=== PATIENT | female | born 2000 ===

== ENCOUNTER 2024-10-04 19:58 | Emergency (ER) | payer BC, SELFPAY ==
[2024-10-04 19:59] VITALS: BP 164/104
--- NOTE | 2024-10-04 20:16 | ED.GENMED ---
History of Present Illness
<MARQUITA Dickerson - Last Filed: 10/04/24 22:16>
General
Chief Complaint: Cardiac Symptoms
Source: patient
Exam Limitations: none
Time Seen by Provider: 10/04/24 20:07
History of Present Illness
History of Present Illness:
This is a 24 year old female that comes in with c/o tachycardia. States that she works at [employer]. States that when she was at work she was having episode of her heart racing. States that they did an ECG and her heart rate was 120.
States that she has a prescription for an Echo and labs. State that she was told that if her heart rate didn't go down to come to the ER. States that she has a Holter monitor on and that she is not getting any better. States that her heart rate was
140 today. States that her chest feels sore. Denies any fever, chills, SOB, abd pain, nausea, vomiting, diarrhea, headache, dizziness, urinary burning.
Past History
<MARQUITA Dickerson - Last Filed: 10/04/24 22:16>
Past History
ED Past Medical History: GERD; Negative Asthma, HTN, Hypercholesterolemia or NIDDM
ED Past Surgical History: None
Social History
Tobacco: Non-smoker
Alcohol: Occasional
Personal: Single
Living: with family
Employment: Employed
Review of Systems
<MARQUITA Dickerson - Last Filed: 10/04/24 22:16>
Review of Systems
All Other Systems: ROS reviewed and negative except as documented in HPI and ROS
Constitutional: Reports no symptoms; Denies fever or chills
EENT: Reports no symptoms
Respiratory: Reports no symptoms; Denies cough or trouble breathing
Cardiac: Reports chest pain (Feels sore) and other (fast heart rate)
ABD/GI: Reports no symptoms; Denies abdominal pain, nausea, vomiting or diarrhea
: Reports no symptoms; Denies dysuria, frequency or urgency
Musculoskeletal: Reports no symptoms
Skin: Reports no symptoms
Neurological: Reports no symptoms; Denies dizzy or headache
Psychiatric: Reports no symptoms
Phy Exam
<MARQUITA Dickerson - Last Filed: 10/04/24 22:16>
General Physical Exam
General Presentation: well appearing and no apparent distress
General age: appears stated age
General Skin: warm and dry
General Habitus: normal
General Mental: alert
General Hydration: appears well hydrated
ENT Exam
ENT Exam: TM's normal, pharynx normal and neck supple
Eye Exam
Eye Exam: EOMI
Cardiovascular Exam
Cardiovascular Exam: no edema, no murmur, normal peripheral pulses and tachycardia
Pulmonary Exam
Pulmonary Exam: lungs clear, no respiratory distress, no rales, chest non tender, no crackles, no rhonchi, no wheezing and no cough
Gastrointestinal Exam
Gastrointestinal Exam: normal bowel sounds, non tender, soft, no organomegaly, no pulsatile mass and non distended
Musculoskeletal Exam
Musculoskeletal Exam: full ROM and no edema
Skin Exam
Skin Exam: normal color, warm/dry, no rash and no petechia
Psychiatric Exam
Psychiatric Exam: normal mood/affect
Course
<MARQUITA Dickerson - Last Filed: 10/04/24 22:16>
Orders/Labs/Results
Orders:
Orders
10/04/24 19:58
ECG [Electrocardiogram (*1)] Urgent
Reason for Study: Palpitations
10/04/24 19:59
EKG- Treatment ONCE
10/04/24 20:15
CR Chest - 2 Views Urgent
Comment:
Reason For Exam: Chest discomfort
10/04/24 20:26
Complete Blood Count/With Diff Urgent
Comprehensive Metabolic Panel Urgent
D-Dimer Urgent
Magnesium Urgent
TSH Reflex To Free T4 Urgent
10/04/24 20:29
Metoprolol [Lopressor] 5 mg 0.9% Sodium Chloride 50 ml [Nss] 50 ml IV NOW
10/04/24 20:36
Metoprolol [Lopressor] 2.5 mg IV NOW STA
Abnormal Lab Results
10/04/24
20:26
WBC 13.5 H 10^3/uL
(4.8-10.8)
Plt Count 435 H 10^3/uL
(130-400)
Abs Immat Gran (auto) 0.1 H 10^3/uL
(0-0.05)
Absolute Neuts (auto) 8.9 H 10^3/uL
(1.4-6.5)
Absolute Lymphs (auto) 3.7 H 10^3/uL
(1.2-3.4)
Absolute Monos (auto) 0.8 H 10^3/uL
(0.1-0.6)
Carbon Dioxide 20 L mmol/L
(22-30)
BUN 5 L mg/dl
(7-17)
Glucose 101 H mg/dl
(70-99)
10/04/24 20:26
10/04/24 20:26
Leukocytosis, Plt slightly elevated. BUN low. glucose nonfasting. D-dimer <0.27, TSH normal t 2.26
Vital Signs
Initial and Last Documented VS:
Initial Vital Signs
Temp Pulse Resp BP Pulse Ox
98.1 F 121 18 164/104 100
10/04/24 19:59 10/04/24 19:59 10/04/24 19:59 10/04/24 19:59 10/04/24 19:59
Last Documented Vital Signs
Temp Pulse Resp BP Pulse Ox
98.1 F 104 16 123/83 100
10/04/24 19:59 10/04/24 21:45 10/04/24 21:45 10/04/24 21:09 10/04/24 19:59
<Reynaldo Worthy Mando, DO - Last Filed: 10/04/24 21:29>
Orders/Labs/Results
Orders:
Orders
10/04/24 19:58
ECG [Electrocardiogram (*1)] Urgent
Reason for Study: Palpitations
10/04/24 19:59
EKG- Treatment ONCE
10/04/24 20:15
CR Chest - 2 Views Urgent
Comment:
Reason For Exam: Chest discomfort
10/04/24 20:26
Complete Blood Count/With Diff Urgent
Comprehensive Metabolic Panel Urgent
D-Dimer Urgent
Magnesium Urgent
TSH Reflex To Free T4 Urgent
10/04/24 20:29
Metoprolol [Lopressor] 5 mg 0.9% Sodium Chloride 50 ml [Nss] 50 ml IV NOW
10/04/24 20:36
Metoprolol [Lopressor] 2.5 mg IV NOW STA
Abnormal Lab Results
10/04/24
20:26
WBC 13.5 H 10^3/uL
(4.8-10.8)
Plt Count 435 H 10^3/uL
(130-400)
Abs Immat Gran (auto) 0.1 H 10^3/uL
(0-0.05)
Absolute Neuts (auto) 8.9 H 10^3/uL
(1.4-6.5)
Absolute Lymphs (auto) 3.7 H 10^3/uL
(1.2-3.4)
Absolute Monos (auto) 0.8 H 10^3/uL
(0.1-0.6)
Carbon Dioxide 20 L mmol/L
(22-30)
BUN 5 L mg/dl
(7-17)
Glucose 101 H mg/dl
(70-99)
10/04/24 20:26
10/04/24 20:26
Vital Signs
Initial and Last Documented VS:
Initial Vital Signs
Temp Pulse Resp BP Pulse Ox
98.1 F 121 18 164/104 100
10/04/24 19:59 10/04/24 19:59 10/04/24 19:59 10/04/24 19:59 10/04/24 19:59
Last Documented Vital Signs
Temp Pulse Resp BP Pulse Ox
98.1 F 104 16 123/83 100
10/04/24 19:59 10/04/24 21:45 10/04/24 21:45 10/04/24 21:09 10/04/24 19:59
<MARQUITA Dickerson - Last Filed: 10/04/24 22:16>
MDM/Problems Addressed
Differential Diagnosis Includes:
Sinus Tachycardia, PE
MDM/Problems Addressed:
This is a 24 year old female that comes in with c/o tachycardia. States that this started today when she was at work and this has continued. Patient is to get an ECHO and had a slip for out patient labs. States that she is wearing a Holter monitor
and was told that if her heart rate stayed elevated to come to the ER.
Will check labs, Chest x-ray, give IV fluids. Message sent to Dr. Estrada to see if he would like us to try a little metoprolol. He would defer to our work up at this time.
Back into see patient. Patient heart rate has slowed with the Metoprolol. Will have patient get the ECHO that was suggested by the Lineworker. Patient is wearing a Holter monitor at this time. Will give patient a Prescription for Metoprolol and
follow up with the Lineworker. Return with any concerns.
Chronic conditions affecting care:
NA
Acute Exacerbation and/or Progression of Chronic Illness:
NA
<MARQUITA Dickerson - Last Filed: 10/04/24 22:16>
*Radiology
Radiology exam reviewed: radiology read reviewed (Chest-No radiographic evidence for cardiopulmonary disease. )
*Pulse Oximetry
Patient hypoxic: no
*EKG
Interpreted by ED Provider?: Yes
Heart Rate: 124
Rate: tachycardiac
Rhythm: sinus
Wylie: normal axis
Interval: normal interval
QRS Pattern: low voltage
Ischemia: no ischemia ( Checked by Dr Gilmore )
*Limb Driver Interpretation
Rate: tachycardiac
Heart Rate: 141
Rhythm: sinus tachycardia
*Critical Care Note
Total Time (30-74mins, 75-104mins- exclusive of procedures): Not Applicable
ED Attending Note
<MARQUITA Dickerson - Last Filed: 10/04/24 22:16>
-
Portions of this chart may have been created with voice recognition software.� Occasional wrong word or��sound alike� substitutions may have occurred due to the inherent limitations of voice recognition software.
<Reynaldo Gilmore DO - Last Filed: 10/04/24 21:29>
ED Attending Note
Patient seen and examined by attending physician: Yes
I performed the substantive portion of visit, reviewed & personally made and approve the management plan that is documented in note by myself or SHATNE.: Yes
I performed a history and physical exam of patient and discussed management with resident, I reviewed resident's note and agree with documented findings and plan of care.: Yes
ED Attending Note:
I evaluated patient at bedside. The patient heart rate was down to 95 after metoprolol 2.5 mg IV were given. D-dimer is reassuring. We talked about possibly starting a beta-jazmín and overall she is willing to try it as she overall feels
improved currently compared to before the beta-jazmín was given.
Discharge Plan
Departure
Patient Disposition: Home (Routine Discharge)
Date of Disposition: 10/04/24
Time of Disposition: 22:08
Patient with high blood pressure during this ER visit?: No
Condition: Good
Covid-19: Not Applicable
Discharge Problem:
Tachycardia
Instructions: Tachycardia
Prescriptions:
New
metoprolol succinate 25 mg tablet extended release 24 hr
25 mg PO DAILY Qty: 30 0RF
No Action
desogestrel-ethinyl estradiol [Apri] 0.15-0.03 mg Tablet
1 tab PO DAILY
cetirizine [Zyrtec] 5 mg Tablet
5 mg PO DAILY
omeprazole 20 mg Tablet,Delayed Release (Dr/Ec)
20 mg PO DAILY
Stand Alone Forms: Return to Work
Activity Restrictions/Additional Instructions:
As discussed, your blood work shows that your white blood cell count is slightly elevated. Otherwise your D-dimer is negative and your TSH is normal. Please follow up with the Lineworker for further evaluation. Get the ECHO as directed. You have
had a prescription for Metoprolol sent to your pharmacy. This will be once daily. Please increase your water intake to 8-8oz glasses daily. IF YOU HAVE ANY CHEST PAIN, OR YOU HAVE ANY OTHER CONCERNS PLEASE RETURN TO THE EMERGENCY ROOM.
Interventions
Interventions:
*Risk Screen - Suicide Last Done: 10/04/24 19:59
*General Assessment Last Done: 10/04/24 19:59
*Neglect/Abuse Screening Last Done: 10/04/24 19:59
ED- Fall Risk Assessment Last Done: 10/04/24 20:30
*ED COVID-19 Vaccine History Last Done: 10/04/24 19:59
ED- Pulmonary Assessment Last Done: 10/04/24 20:30
ED- Cardiac Assessment Last Done: 10/04/24 20:30
Discharge Date and Time
Print Language: BOLIVIAN
[2024-10-04 20:28] VITALS: BP 128/83
[2024-10-04 20:30] VITALS: BMI 31.8
[2024-10-04 20:46] LABS: % Basophils 0.2 % (0-2); % Eosinophils 0.1 % (0-6); % Immature Granulocytes 0.4 % (0-0.5); % Lymphocytes 27.6 % (20.5-51.1); % Neutrophils 65.7 % (42.2-75.2); Absolute Immature Granulocytes 0.1 10^3/uL (0-0.05); Absolute Lymphocytes 3.7 10^3/uL (1.2-3.4); Absolute Monocytes 0.8 10^3/uL (0.1-0.6); Absolute Neutrophils 8.9 10^3/uL (1.4-6.5); Hematocrit 39.1 % (37.0-47.0); Hemoglobin 13.7 g/dL (12.0-16.0); Mean Corpuscular Hgb 29.7 pg (27.0-31.0); Mean Corpuscular Volume 84.8 fL (81.0-99.0); Mean Platelet Volume 9.6 fL (7.4-10.4); Nucleated Red Blood Cells % 0 %; Platelet Count 435 10^3/uL (130-400); Red Blood Cell Count 4.61 10^6/uL (4.20-5.40); Red Cell Dist. Width 12.7 % (11.5-14.5); White Blood Cell Count 13.5 10^3/uL (4.8-10.8)
[2024-10-04 20:57] LABS: ALT (SGPT) 12 U/L (0-35); AST (SGOT) 18 U/L (14-36); Albumin 4.4 g/dl (3.5-5.0); Alkaline Phosphatase 92 U/L (38-126); Blood Urea Nitrogen 5 mg/dl (7-17); Calcium 9.8 mg/dl (8.4-10.2); Carbon Dioxide 20 mmol/L (22-30); Chloride 104 mmol/L (98-107); Estimated Creatinine Clearance > 125 ml/min; Glucose 101 mg/dl (70-99); Magnesium 1.9 mg/dl (1.6-2.3); Potassium 3.8 mmol/L (3.5-5.1); Sodium 137 mmol/L (135-145); Total Bilirubin 0.5 mg/dl (0.2-1.3); Total Protein 7.5 g/dl (6.3-8.2); eGFR > 60.00
[2024-10-04 21:07] VITALS: BP 123/83
[2024-10-04 21:09] LABS: D-Dimer < 0.27 ug/mlFEU (0.00-0.50)
[2024-10-04] MEDS: LOPRESSOR 2.5 MG IV (21:09)
[2024-10-04 21:29] LABS: TSH Reflex To Free T4 2.26 uIU/ml (0.47-4.68)
[2024-10-04 22:00] VITALS: BP 108/75
== END 2024-10-04 22:48 | disposition home or self-care (01) ==
LOC: EMR 19:58
PROVIDERS: Clinical Nurse Specialist Family Health; EMERGENCY PHYSICIAN Emergency Medicine
DX: R00.0 Tachycardia, unspecified (principal); K21.9 Gastro-esophageal reflux disease without esophagitis; D72.829 Elevated white blood cell count, unspecified
CPT/HCPCS: 99283; 96374; 71046; 80053; 83735; 84443; 85025; 85379; 93005

== ENCOUNTER → 2024-10-11 14:54 | Outpatient (REF) | payer BC, SELFPAY | LOC: RCS 14:54 | PROVIDERS: ATTENDING PHYSICIAN Physician Assistant Medical | DX: R00.2 Palpitations (principal); R00.0 Tachycardia, unspecified | CPT/HCPCS: 93306 ==